=== PATIENT | male | born 1945 | race Caucasian/White ===

== ENCOUNTER 2023-06-28 13:24 | Observation (INO) | payer MEDICARE, BC ==
[2023-06-28] MEDS: Sodium Chloride 0.9% 1,000 ML IV SCH ×3 (13:37→19:00)
[2023-06-28] MEDS ORDERED: Sodium Chloride 0.9% 10 ML Syringe FLUSH PRN (13:37)
[2023-06-28 13:57] LABS: HEMATOCRIT 42.7 % (40.0-54.0); HEMOGLOBIN 14.3 g/dL (13.0-18.0); MEAN CORPUSCULAR HGB CONC 33.5 g/dL (31.0-35.0); MEAN PLATELET VOLUME 9.1 fL (6.0-10.0); RED BLOOD CELL COUNT 4.33 M/uL (4.50-6.50); RED CELL DISTRIBUTION WIDTH 12.9 % (11.0-16.0); WHITE BLOOD CELL COUNT,WBC 8.3 K/uL (4.0-11.0)
[2023-06-28 14:17] LABS: ANION GAP 14.8 mmol/L (5.0-15.0); BUN/CREATININE RATIO 21.1 (6-25); CALCIUM 9.5 mg/dL (8.5-10.1); CARBON DIOXIDE,CO2 23.6 mmol/L (21.0-32.0); CREATININE 1.61 mg/dL (0.70-1.30); EST CRCL DRUG DOSING (CG) 40.84 mL/min; MAGNESIUM 2.2 mg/dL (1.8-2.4); POTASSIUM,K 4.4 mmol/L (3.5-5.1); TROPONIN I HIGH SENSITIVITY 42.1 pg/ml (<=60.4)
[2023-06-28] MEDS ORDERED: Iodixanol 550 MG/ML 100 ML Bottle IV ONE (14:46)
[2023-06-28] MEDS: Aspirin 81 MG Tab.Chew PO ONE (14:48)
[2023-06-28] MEDS: Iodixanol 652 MG/ML 100 ML Bottle IV PRN (15:15)
[2023-06-28] MEDS: Sodium Chloride 0.9% 50 ML SDV FLUSH SCH (15:15)
[2023-06-28] MEDS: Adenosine 12 MG/4 ML SDV ONE (15:24)
[2023-06-28] MEDS: Adenosine 12 MG/4 ML SDV IVPUSH ONE (15:24)
[2023-06-28] MEDS: Aspirin 325 MG Tab.EC ONE (20:46)
[2023-06-28] MEDS: atorvaSTATin 20 MG Tab PO SCH (20:47)
[2023-06-28] MEDS: Carvedilol 3.125 MG Tab PO SCH (20:47)
[2023-06-28] MEDS: Carvedilol 6.25 MG Tab ONE (20:47)
[2023-06-28] MEDS: atorvaSTATin 20 MG Tab ONE (20:48)
[2023-06-28] MEDS: Non-Formulary Medication 1 Each (Aspirin [Aspirin] 325 MG Tablet) PO SCH (20:49)
[2023-06-28] MEDS ORDERED: Aspirin 325 MG Tab.EC PO SCH (21:16)
[2023-06-29 03:29] VITALS: PULSE 65
[2023-06-29] MEDS: Hydrochlorothiazide 12.5 MG Cap PO SCH (08:28)
[2023-06-29 08:34] VITALS: BP 123/70
[2023-06-29] MEDS: Valsartan 40 MG Tab ONE ×2 (08:34→10:35)
[2023-06-29 09:30] LABS: ANION GAP 11.7 mmol/L (5.0-15.0); BUN/CREATININE RATIO 17.7 (6-25); CALCIUM 8.5 mg/dL (8.5-10.1); CARBON DIOXIDE,CO2 24.2 mmol/L (21.0-32.0); CREATININE 1.24 mg/dL (0.70-1.30); EST CRCL DRUG DOSING (CG) 53.02 mL/min; POTASSIUM,K 3.9 mmol/L (3.5-5.1)
== END 2023-06-29 11:03 | disposition home or self-care (01) ==
LOC: LB.ED 13:24 → LB.MS 17:45 → LB.ED 17:52
PROVIDERS: ADMIT Surgery; ATTEND Surgery
DX: I47.10 Supraventricular tachycardia, unspecified (principal); N17.9 Acute kidney failure, unspecified; Z79.82 Long term (current) use of aspirin; Z79.899 Other long term (current) drug therapy
CPT/HCPCS: 36415; 71045; 71275; 80048; 83735; 84100; 84484; 85027; 85379; 93005; 96361; 96374; 99285; A9270; G0378; J0153; J3490; J7030; 93010; 99222; 99238